=== PATIENT | female | born 1995 | race African-American/Black ===

== ENCOUNTER 2017-06-03 10:14 | Emergency (ER) | payer SELFPAY ==
[2017-06-03 11:20] LABS: ABS Basophils 0 10^3/ul (0-0.2); ABS Eosinophils 0.2 10^3/ul (0-0.6); ABS Lymphocytes 2.1 10^3/ul (1.0-4.8); ABS Monocytes 0.6 10^3/ul (0-0.8); ABS Neutrophils 10.4 10^3/ul (1.5-7.7); ABS Nucleated RBC 0 10^3/ul; Eosinophil % 1.1 % (0-6); Hematocrit 43 % (35-47); Hemoglobin 14.5 g/dl (12.0-16.0); Lymphocyte % 15.7 % (25-47); Mean Corpuscular HGB Conc 34 g/dl (31-36); Mean Corpuscular Hemoglobin 30 pg (27-31); Mean Corpuscular Volume 88 fL (80-97); Mean Platelet Volume 9.1 um3 (7.4-10.4); Nucleated Red Blood Cells % 0; Platelet Count 212 10^3/ul (150-450); Red Blood Count 4.86 10^6/ul (4.0-5.4); Red Cell Distribution Width 15 % (10.5-15); White Blood Count 13.3 10^3/ul (3.5-10.8)
[2017-06-03 11:41] LABS: Urine Appearance Clear; Urine Blood Negative (Negative); Urine Color Yellow; Urine Ketones Negative (Negative); Urine Protein Negative (Negative); Urine Specific Gravity 1.008 (1.010-1.030); Urine Urobilinogen Negative (Negative)
--- NOTE | 2017-06-03 12:29 | ED ---
- HPI Summary HPI Summary: 21 female presents to ED with complaints of some lower suprapubic cramping that' s been ongoing for the past 2-3 days. Denies any vaginal bleeding, vaginal discharge or urinary symptoms. Has been going to the bathroom normally. States she took a test 2 weeks ago and was negative however took one 3 days ago and was positive. Patient states last menstrual cycle was approximately one month ago and is unsure of the date. Denies any concerns for STDs or infection. Has had one and has 1 child in the past without complication. Normal vaginal delivery. Is not on any control. Pain does not radiate. Feels like menstrual cramps per patient. Has not taken any medication. No past medical history no other complaints. No fever no chills no chest pain or shortness of breath. Nothing makes the pain better or worse. - History of Current Complaint Chief Complaint: EDAbdPain Stated Complaint: FALL/ABD PAIN Time Seen by Provider: 06/03/17 10:52 Hx Obtained From: Patient Chief Complaint: Pain Onset/Duration: Started Days Ago Timing: Intermittent - Worse at times Severity: Mild Current Severity: Mild Pain Intensity: 5 Location of Pain: Suprapubic Character: Cramping Aggravating Factors: Nothing Alleviating Factors: Nothing Associated Signs and Symptoms: Negative: Urinary Symptoms, Vaginal Bleeding or Discharge - Assessment Hx Now: Yes - positive home test 3 days ago Hx : 2 - including current Hx Para: 1 SAB: 0 IEA: 0 History of Ectopic : No Hx Pelvic Inflammatory Disease: No Vaginal Bleeding Amount: None Hx Last Menstrual Period: 05/03/17 - "one month ago" Hx Hysterectomy: No - Risk Factors Ectopic Risk Factor: Negative Ovarian Torsion Risk Factor: Negative - Additional Pertinent History Maternal Blood Type and Rh: O Positive - Allergies/Home Medications Allergies/Adverse Reactions: Allergies Allergy/AdvReac Type Severity Reaction Status Date / Time No Known Allergies Allergy Verified 06/03/17 10:23 PMH/Surg Hx/FS Hx/Imm Hx Endocrine/Hematology History: Denies: Hx Diabetes Cardiovascular History: Denies: Hx Hypertension, Hx Pacemaker/ICD Respiratory History: Reports: Hx Asthma - SPORTS INDUCED History: Denies: Hx Renal Disease Sensory History: Denies: Hx Hearing Aid Psychiatric History: Reports: Hx Anxiety, Hx Attention Deficit Hyperactivity Disorder, Hx Depression, Hx Community Mental Health Tx, Hx Substance Abuse Denies: Hx Eating Disorder, Hx Panic Disorder, Hx Post Traumatic Stress Disorder, Hx Inpatient Treatment, Hx Schizophrenia, Hx Bipolar Disorder, Hx Suicide Attempt, Hx of Violent Episodes Against Others - Surgical History Surgery Procedure, Year, and Place: 2002-[facility]SILECTOMY - Immunization History Immunizations Up to Date: Yes Infectious Disease History: No Infectious Disease History: Denies: History Other Infectious Disease, Traveled Outside the [place] in Last 30 Days - Family History Known Family History: Positive: Cardiac Disease - CHF, Hypertension, Respiratory Disease - COPD - Social History Alcohol Use: None Alcohol Amount: A couple beers every day, but nothing last 2 days Substance Use Type: Reports: None Substance Use Comment - Amount & Last Used: hx cocaine, marijuana Smoking Status (MU): Light Every Day Tobacco Smoker Type: Cigarettes Amount Used/How Often: 4-5 per day Length of Time of Smoking/Using Tobacco: 7 years Have You Smoked in the Last Year: Yes Review of Systems Constitutional: Negative Cardiovascular: Negative Respiratory: Negative Positive: Abdominal Pain - suprapubic Positive: see HPI Skin: Negative Neurological: Negative All Other Systems Reviewed And Are Negative: Yes Physical Exam - Physical Exam Triage Information Reviewed: Yes Vital Signs On Initial Exam: Temp 98.5F Blood pressure 129/81 heart rate 74 02 :98 Respirations 16 Vital Signs Reviewed: Yes Appearance: Positive: Well-Appearing, No Pain Distress, Well-Nourished Skin: Positive: Warm, Skin Color Reflects Adequate Perfusion, Dry. Negative: Cold, Cyanosis @, Pale, Erythema @ Head/Face: Positive: Normal Head/Face Inspection Eyes: Positive: Conjunctiva Clear ENT: Positive: Pharynx normal Neck: Positive: Supple Respiratory/Lung Sounds: Positive: Clear to Auscultation, Breath Sounds Present. Negative: Rales, Rhonchi, Wheezes Cardiovascular: Positive: Normal, RRR, Pulses are Symmetrical in both Upper and Lower Extremities. Negative: Murmur, Rub Abdomen Description: Positive: No Organomegaly, Soft, Other: - Tenderness over suprapubic area on palpation. Negative: CVA Tenderness (R), CVA Tenderness (L) , Distended, Guarding Bowel Sounds: Positive: Present Musculoskeletal: Positive: Normal, Strength/ROM Intact Neurological: Positive: Normal, Sensory/Motor Intact, Alert, Oriented to Person Place, Time - Vaginal Assessment Presentation Comment: vertex Diagnostics - Vital Signs Vital Signs Temp Pulse Resp BP Pulse Ox 06/03/17 10:24 98.5 F 74 16 129/81 98 - Laboratory Lab Results: Lab Results 06/03/17 06/03/17 06/03/17 Range/Units 11:10 11:10 11:10 WBC 13.3 H (3.5-10.8) 10^3/ul RBC 4.86 (4.0-5.4) 10^6/ul Hgb 14.5 (12.0-16.0) g/dl Hct 43 (35-47) % MCV 88 (80-97) fL MCH 30 (27-31) pg MCHC 34 (31-36) g/dl RDW 15 (10.5-15) % Plt Count 212 (150-450) 10^3/ul MPV 9.1 (7.4-10.4) um3 Neut % (Auto) 78.3 (38-83) % Lymph % (Auto) 15.7 L (25-47) % Posey % (Auto) 4.5 (0-7) % Eos % (Auto) 1.1 (0-6) % Baso % (Auto) 0.4 (0-2) % Absolute Neuts (auto) 10.4 H (1.5-7.7) 10^3/ul Absolute Lymphs (auto) 2.1 (1.0-4.8) 10^3/ul Absolute Monos (auto) 0.6 (0-0.8) 10^3/ul Absolute Eos (auto) 0.2 (0-0.6) 10^3/ul Absolute Basos (auto) 0 (0-0.2) 10^3/ul Absolute Nucleated RBC 0 10^3/ul Nucleated RBC % 0 Sodium 137 L (139-145) mmol/L Potassium 4.0 (3.5-5.0) mmol/L Chloride 109 (101-111) mmol/L Carbon Dioxide 22 (22-32) mmol/L Anion Gap 6 (2-11) mmol/L BUN 10 (6-24) mg/dL Creatinine 0.84 (0.51-0.95) mg/dL Est GFR ( Amer) 108.1 (>60) Est GFR (Non-Af Amer) 84.0 (>60) BUN/Creatinine Ratio 11.9 (8-20) Glucose 98 (70-100) mg/dL Lactic Acid 0.7 (0.5-2.0) mmol/L Calcium 9.8 (8.6-10.3) mg/dL Total Bilirubin 0.30 (0.2-1.0) mg/dL AST 16 (13-39) U/L ALT 10 (7-52) U/L Alkaline Phosphatase 59 (34-104) U/L C-Reactive Protein 1.56 (< 5.00) mg/L Total Protein 7.5 (6.4-8.9) g/dL Albumin 4.4 (3.2-5.2) g/dL Globulin 3.1 (2-4) g/dL Albumin/Globulin Ratio 1.4 (1-3) Lipase 39 (11.0-82.0) U/L Beta HCG, Quant 2597.00 mIU/mL Urine Color Urine Appearance Urine pH (5-9) Ur Specific Colton (1.010-1.030) Urine Protein (Negative) Urine Ketones (Negative) Urine Blood (Negative) Urine Nitrate (Negative) Urine Bilirubin (Negative) Urine Urobilinogen (Negative) Ur Leukocyte Esterase (Negative) Urine Glucose (Negative) 06/03/17 Range/Units 11:22 WBC (3.5-10.8) 10^3/ul RBC (4.0-5.4) 10^6/ul Hgb (12.0-16.0) g/dl Hct (35-47) % MCV (80-97) fL MCH (27-31) pg MCHC (31-36) g/dl RDW (10.5-15) % Plt Count (150-450) 10^3/ul MPV (7.4-10.4) um3 Neut % (Auto) (38-83) % Lymph % (Auto) (25-47) % Posey % (Auto) (0-7) % Eos % (Auto) (0-6) % Baso % (Auto) (0-2) % Absolute Neuts (auto) (1.5-7.7) 10^3/ul Absolute Lymphs (auto) (1.0-4.8) 10^3/ul Absolute Monos (auto) (0-0.8) 10^3/ul Absolute Eos (auto) (0-0.6) 10^3/ul Absolute Basos (auto) (0-0.2) 10^3/ul Absolute Nucleated RBC 10^3/ul Nucleated RBC % Sodium (139-145) mmol/L Potassium (3.5-5.0) mmol/L Chloride (101-111) mmol/L Carbon Dioxide (22-32) mmol/L Anion Gap (2-11) mmol/L BUN (6-24) mg/dL Creatinine (0.51-0.95) mg/dL Est GFR ( Amer) (>60) Est GFR (Non-Af Amer) (>60) BUN/Creatinine Ratio (8-20) Glucose (70-100) mg/dL Lactic Acid (0.5-2.0) mmol/L Calcium (8.6-10.3) mg/dL Total Bilirubin (0.2-1.0) mg/dL AST (13-39) U/L ALT (7-52) U/L Alkaline Phosphatase (34-104) U/L C-Reactive Protein (< 5.00) mg/L Total Protein (6.4-8.9) g/dL Albumin (3.2-5.2) g/dL Globulin (2-4) g/dL Albumin/Globulin Ratio (1-3) Lipase (11.0-82.0) U/L Beta HCG, Quant mIU/mL Urine Color Yellow Urine Appearance Clear Urine pH 6.0 (5-9) Ur Specific Colton 1.008 L (1.010-1.030) Urine Protein Negative (Negative) Urine Ketones Negative (Negative) Urine Blood Negative (Negative) Urine Nitrate Negative (Negative) Urine Bilirubin Negative (Negative) Urine Urobilinogen Negative (Negative) Ur Leukocyte Esterase Negative (Negative) Urine Glucose Negative (Negative) Result Diagrams: 06/03/17 11:10 06/03/17 11:10 Lab Statement: Any lab studies that have been ordered have been reviewed, and results considered in the medical decision making process. - Ultrasound No standard instances Ultrasound Interpretation: Positive (See Comments) - 1. Potential although not definitive intrauterine gestational sac measuring up to 0.45 cm corresponding to 5 weeks 0 days gestation however no pole or yolk sac is visualized to confirm that this represents a gestational sac. 2. Negative for suspicious extraovarian adnexal region lesions. 3. As an ectopic cannot be excluded in setting of positive test without definitive IUP close clinical, beta-HCG, and sonographic follow-up is suggested as deemed appropriate. Ultrasound Interpretation Completed By: Radiologist Re-Evaluation - Re-Evaluation First Eval Re-Evaluation Time: 13:30 Change: Improved - Considered on ultrasound and lab results patient agrees and understands plan and is feeling better and wants to go home. No other complaints or concerns Course/Dx - Course Course Of Treatment: Patient denies any Tylenol any G period cramps subsided some. Ultrasound obtained and showed a potential early IUP without complication. HCG obtained 2597 appears to be increasing normally. Rest of labs are unremarkable. Urinalysis unremarkable. Normal physical examination vital signs otherwise. Appears to be experiencing some cramping due to . Educated potential miscarriage is possible however there is no vaginal bleeding or discharge to state otherwise. Patient is aware worsening signs and symptoms watch out for. Call make an appointment with [facility] have repeat hCG and ultrasound obtained. Return to ED if any new symptoms occur. Patient agrees and understands plan. No other complaints or concerns. Educated on no drug or alcohol use and Tylenol as anything safe for pain. sent over to pharmacy. - Differential Diagnosis/HQI/PQRI: Threatened , Early , Other: - Cramping - Diagnoses Provider Diagnoses: Early stage of Discharge - Sign-Out/Discharge Documenting (check all that apply): Discharge - Discharge Plan Condition: Good Disposition: HOME Prescriptions: Pnv No.95/Ferrous Fum/Folic AC [ Tablet] 1 each PO DAILY #30 tablet Patient Education Materials: (ED) Referrals: Mazin Ray MD [Primary Care Provider] - Felipe Ramos MD [Medical Doctor] - Additional Instructions: Please call to make an appointment with [facility] and have repeat ultrasound and hCG performed. Any new or worsening symptoms please seek medical attention promptly, as we discussed. Take prenatals daily. Tylenol as the only safe pain reliever to take as needed. Recommend warm compresses over her abdomen to help with cramping.. - Billing Disposition and Condition Condition: GOOD Disposition: HOME
--- NOTE | 2017-06-03 13:23 | RAD ---
Indication: Pelvic pain post fall 2 days ago. . Unsure of date of LMP. Comparison: No relevant prior exams available on [place] [facility]. Technique: Transvaginal obstetrical ultrasound. Report: 9.4 x 5.0 x 6.0 cm anteverted uterus with 11.7 mm endometrium. 0.45 cm mean diameter cystic structure with suggestion of an early decidual reaction visualized within the endometrial cavity which corresponding with 5 weeks 0 days gestation. No pole or yolk sac visualized. No perigestational hemorrhage evident. 3.8 x 2.0 x 3.0 cm RIGHT ovary with documented vascular flow is remarkable for a low suspicion based on small size 2.0 x 1.5 x 1.8 cm heterogeneous echogenicity structure devoid of intrinsic vascularity which may represent a hemorrhagic cyst or corpus luteum. 3.6 x 1.7 x 2.3 cm LEFT ovary with documented vascular flow is unremarkable. No extra ovarian adnexal region lesions evident. Physiologic trace volume of free pelvic fluid in the RIGHT adnexal region. IMPRESSION: 1. Potential although not definitive intrauterine gestational sac measuring up to 0.45 cm corresponding to 5 weeks 0 days gestation however no pole or yolk sac is visualized to confirm that this represents a gestational sac. 2. Negative for suspicious extraovarian adnexal region lesions. 3. As an ectopic cannot be excluded in setting of positive test without definitive IUP close clinical, beta-HCG, and sonographic follow-up is suggested as deemed appropriate.
[2017-06-03 13:44] VITALS: BP 130/82
== END 2017-06-03 13:43 | disposition home or self-care (01) ==
LOC: ED 10:14
DX: Z33.1 Pregnant state, incidental (principal); J45.909 Unspecified asthma, uncomplicated; F90.9 Attention-deficit hyperactivity disorder, unspecified type; F41.9 Anxiety disorder, unspecified; F32.9 Major depressive disorder, single episode, unspecified; F17.210 Nicotine dependence, cigarettes, uncomplicated
CPT/HCPCS: 36415; 76817; 80053; 81003; 83605; 83690; 84702; 85025; 86140; 99282

== ENCOUNTER 2018-04-02 15:34 | Inpatient (IN) | payer OTHER ==
--- NOTE | 2018-04-02 15:54 | ED ---
Psychiatric Complaint - HPI Summary HPI Summary: This patient is a 22 year old female presenting to the emergency department with a CC of SI. She is accompanied by her sister who dictates the history. The patient was cutting her forearms with a knife and attempted to cut her throat but her sister took the the knife from her. She is unsure of LNMP. Pt has hx of depression and anxiety. She has been sleeping very often recently. There is a history of glioblastoma in the family. - History Of Current Complaint Chief Complaint: EDMentalHealth Time Seen by Provider: 04/02/18 15:44 Hx Obtained From: Patient Hx Last Menstrual Period: End Dec 2014 Onset/Duration: Still Present Timing: Constant Severity Initially: Moderate Severity Currently: Moderate Character: Depressed Related History: Positive For: Prior Psychiatric Issues Has Suicidal: Reports: Thoughts, With A Plan, Demonstrates Gesture - Allergies/Home Medications Allergies/Adverse Reactions: Allergies Allergy/AdvReac Type Severity Reaction Status Date / Time No Known Allergies Allergy Verified 06/03/17 10:23 Home Medications: Home Medications NK [No Home Medications Reported] 04/02/18 [History Confirmed 04/02/18] PMH/Surg Hx/FS Hx/Imm Hx Endocrine/Hematology History: Denies: Hx Diabetes Cardiovascular History: Denies: Hx Hypertension, Hx Pacemaker/ICD Respiratory History: Reports: Hx Asthma - SPORTS INDUCED GI History: Denies: Hx Gastroesophageal Reflux Disease History: Denies: Hx Renal Disease Sensory History: Denies: Hx Hearing Aid Psychiatric History: Reports: Hx Anxiety, Hx Attention Deficit Hyperactivity Disorder, Hx Depression, Hx Community Mental Health Tx, Hx Substance Abuse Denies: Hx Eating Disorder, Hx Panic Disorder, Hx Post Traumatic Stress Disorder, Hx Inpatient Treatment, Hx Schizophrenia, Hx Bipolar Disorder, Hx Suicide Attempt, Hx of Violent Episodes Against Others - Surgical History Surgery Procedure, Year, and Place: 2002-[facility]SILECTOMY Infectious Disease History: No Infectious Disease History: Denies: History Other Infectious Disease, Traveled Outside the [place] in Last 30 Days - Family History Known Family History: Positive: Cardiac Disease - CHF, Hypertension, Respiratory Disease - COPD - Social History Alcohol Use: None Alcohol Amount: A couple beers every day, but nothing last 2 days Substance Use Type: Reports: None Substance Use Comment - Amount & Last Used: hx cocaine, marijuana Smoking Status (MU): Light Every Day Tobacco Smoker Type: Cigarettes Amount Used/How Often: 4-5 per day Length of Time of Smoking/Using Tobacco: 7 years Have You Smoked in the Last Year: Yes Review of Systems Positive: Fatigue Positive: Other - abrasions Positive: Depressed - w/ SI All Other Systems Reviewed And Are Negative: Yes Physical Exam - Summary Physical Exam Summary: VITAL SIGNS: Reviewed. GENERAL: Patient is a well-developed and nourished female who is lying comfortable in the stretcher. Patient is not in any acute respiratory distress. HEAD AND FACE: No signs of trauma. No ecchymosis, hematomas or skull depressions. No sinus tenderness. EYES: PERRLA, EOMI x 2, No injected conjunctiva, no nystagmus. EARS: Hearing grossly intact. Ear canals and tympanic membranes are within normal limits. MOUTH: Oropharynx within normal limits. NECK: Supple, trachea is midline, no adenopathy, no JVD, no carotid bruit, no c- spine tenderness, neck with full ROM. CHEST: Symmetric, no tenderness at palpation LUNGS: Clear to auscultation bilaterally. No wheezing or crackles. CVS: Regular rate and rhythm, S1 and S2 present, no murmurs or gallops appreciated. ABDOMEN: Soft, non-tender. No signs of distention. No rebound no guarding, and no masses palpated. Bowel sounds are normal. EXTREMITIES: FROM in all major joints, no edema, no cyanosis or clubbing. NEURO: Alert and oriented x 3. No acute neurological deficits. Speech is normal and follows commands. SKIN:There are 4 superficial abrasion on the left forearm Triage Information Reviewed: Yes Vital Signs On Initial Exam: Initial Vitals Temp Pulse Resp BP Pulse Ox 98.4 F 96 20 136/84 99 04/02/18 15:40 04/02/18 15:40 04/02/18 15:40 04/02/18 15:40 04/02/18 15:40 Vital Signs Reviewed: Yes - Faustino Coma Scale Best Eye Response: 4 - Spontaneous Best Motor Response: 5 - Purposeful Movement Best Verbal Response: 5 - Oriented Coma Scale Total: 14 Diagnostics - Vital Signs Vital Signs Temp Pulse Resp BP Pulse Ox 04/02/18 15:40 98.4 F 96 20 136/84 99 - Laboratory Result Diagrams: 04/02/18 15:22 04/02/18 15:22 Lab Statement: Any lab studies that have been ordered have been reviewed, and results considered in the medical decision making process. - CT CT head CT Interpretation Completed By: Radiologist Summary of CT Findings: No intracranial mass or hemorrhage is noted. Dr Urena has reviewed this report. Re-Evaluation - Re-Evaluation First Eval Re-Evaluation Time: 19:07 Comment: After a MHE by Dr Avalos the patient will be a voluntary admission for major depressive disorder. Course/Dx - Course Assessment/Plan: Blood work w/o a significant abnormality. She is medically cleared. She is awaiting for a MHE. Patient is hemodynamically stable and A+O x 3. Patient was assessed by Dr. Nita chisholm from the psychiatry services and he he recommends for the patient to be admitted to his service for further workup and management. - Differential Dx/Clinical Impression Differential Diagnosis/HQI/PQRI: Positive: Anxiety, Depression, Suicidal Ideation Provider Diagnosis: Major depressive disorder Discharge - Sign-Out/Discharge Documenting (check all that apply): Patient Departure - admitted Patient Received Moderate/Deep Sedation with Procedure: No - Discharge Plan Condition: Fair Dis[place] [place]illing Disposition and Condition Condition: FAIR Disposition: [place] [facility] [place] Attestation Statements Document Initiated by Elizabethe: Yes Documenting Scribe: Willy Solorio Provider For Whom Scribe is Documenting (Include Credential): Tj Urena MD Scribe Attestation: Willy Ortega , scribed for Tj Urena MD on 04/03/18 at 2055. Scribe Documentation Reviewed: Yes Provider Attestation: The documentation as recorded by the Willy gann accurately reflects the service I personally performed and the decisions made by Tj singletary MD Status of Scribe Document: Viewed
[2018-04-02 16:33] LABS: ABS Basophils 0 10^3/ul (0-0.2); ABS Eosinophils 0.1 10^3/ul (0-0.6); ABS Lymphocytes 1.5 10^3/ul (1.0-4.8); ABS Monocytes 0.5 10^3/ul (0-0.8); ABS Neutrophils 6.7 10^3/ul (1.5-7.7); ABS Nucleated RBC 0 10^3/ul; Eosinophil % 0.7 %; Hematocrit 41 % (35-47); Lymphocyte % 17.2 %; Mean Corpuscular HGB Conc 34 g/dl (31-36); Mean Corpuscular Hemoglobin 30 pg (27-31); Mean Corpuscular Volume 88 fL (80-97); Mean Platelet Volume 8.8 fL (7.4-10.4); Nucleated Red Blood Cells % 0; Platelet Count 242 10^3/ul (150-450); Red Blood Count 4.68 10^6/ul (4.00-5.40); Red Cell Distribution Width 14 % (10.5-15); White Blood Count 8.9 10^3/ul (3.5-10.8)
[2018-04-02 16:34] LABS: Urine Appearance Clear; Urine Bilirubin Negative (Negative); Urine Blood Negative (Negative); Urine Color Yellow; Urine Glucose Negative (Negative); Urine Ketones Negative (Negative); Urine Nitrite Negative (Negative); Urine Protein Negative (Negative); Urine Specific Gravity 1.008 (1.010-1.030); Urine Urobilinogen Negative (Negative)
[2018-04-02 16:53] LABS: ALT 12 U/L (7-52); AST 15 U/L (13-39); Albumin 4.9 g/dL (3.2-5.2); Albumin/Globulin Ratio 1.6 (1-3); Alkaline Phosphatase 53 U/L (34-104); Anion Gap 8 mmol/L (2-11); BUN/Creatinine Ratio 11.3 (8-20); Blood Urea Nitrogen 9 mg/dL (6-24); CO2 Carbon Dioxide 23 mmol/L (22-32); Calcium 9.8 mg/dL (8.6-10.3); Chloride 104 mmol/L (101-111); EGFR African American 106.6 (>60); EGFR Non-African American 88.1 (>60); Globulin 3.1 g/dL (2-4); Glucose 117 mg/dL (70-100); Potassium 3.9 mmol/L (3.5-5.0); Sodium 135 mmol/L (135-145)
[2018-04-02 16:54] LABS: Barbiturates Urine Screen None Detected (None Detect); Benzodiazepine Urine Screen None Detected (None Detect); Urine Cannabinoids Screen None Detected (None Detect)
[2018-04-02 16:57] LABS: HCG Pregnancy < 0.60 mIU/mL
[2018-04-02 17:16] LABS: Acetaminophen < 15 mcg/mL; Alcohol < 10 mg/dL (<10); Salicylate < 2.50 mg/dL (<30)
[2018-04-02 18:07] LABS: TSH (Thyroid Stimulating Horm) 1.26 mcIU/mL (0.34-5.60)
[2018-04-02] MEDS ORDERED: Nicotine Inhaler* 10 MG AMP INH ONE (20:36)
[2018-04-02] MEDS ORDERED: Mouth Piece, Nicotine* 1 EACH CARTRIDGE ONE (20:42)
[2018-04-02] MEDS ORDERED: Acetaminophen TAB* 325 MG PO PRN (22:21)
[2018-04-02] MEDS ORDERED: Nicotine GUM* 2 MG PO PRN (22:21)
[2018-04-02] MEDS ORDERED: Al Hydrox/Mg Hydrox/Simet LIQ* 30 ML UDC PO PRN (22:21)
[2018-04-02] MEDS ORDERED: Nicotine Inhaler* 10 MG AMP INH PRN (22:22)
[2018-04-02] MEDS ORDERED: Mouth Piece, Nicotine* 1 EACH CARTRIDGE INH PRN (22:22)
[2018-04-02] MEDS ORDERED: LORazepam TAB(*) 1 MG PO ONE (22:26)
[2018-04-02] MEDS ORDERED: LORazepam TAB(*) 1 MG ONE (22:33)
[2018-04-03 07:40] LABS: HDL Cholesterol 29.3 mg/dL
[2018-04-03] MEDS: Multivitamins/Minerals TAB PO SCH (09:24)
[2018-04-03] MEDS ORDERED: buPROPion TAB* 100 MG PO ONE (11:34)
[2018-04-03] MEDS: Nicotine PATCH 21 MG/24 HR* PATCH TRANSDERM SCH (13:11)
[2018-04-03] MEDS: cloNIDine TAB* 0.1 MG PO PRN (13:48)
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
[2018-04-03] MEDS: Nicotine Patch Removal NOTE FOLLOW UP SCH (22:56)
[2018-04-04] MEDS: Nicotine PATCH 21 MG/24 HR* PATCH TRANSDERM SCH (09:26)
[2018-04-04] MEDS: BuPROPion XL* 150 MG TAB.XL PO SCH (09:27)
[2018-04-04] MEDS: Multivitamins/Minerals TAB PO SCH (09:27)
[2018-04-04] MEDS: cloNIDine TAB* 0.1 MG PO PRN (12:18)
[2018-04-04] MEDS: Nicotine Patch Removal NOTE FOLLOW UP SCH (21:58)
[2018-04-05] MEDS: Multivitamins/Minerals TAB PO SCH (08:23)
[2018-04-05] MEDS: Nicotine PATCH 21 MG/24 HR* PATCH TRANSDERM SCH (08:23)
[2018-04-05] MEDS: BuPROPion XL* 150 MG TAB.XL PO SCH (08:23)
[2018-04-05] MEDS: cloNIDine TAB* 0.1 MG PO PRN (18:15)
--- NOTE | 2018-04-05 19:29 | PN ---
Subjective - Subjective Date of Service: 04/05/18 Service Type: 91106 Hosp care 15 min low complexity Subjective: Carolann remains depressed and to an extent paranoid. Stays in her room because the scared to go into the milieu. Nervous and tearful during the assessment. Reports of feeling confused and inability to think clearly. Denies thoughts of self harm or hallucinations. Objective - Appearance Appearance: Healthy Appearing, Obese Dysmorphic Features: No Hygiene: Normal Grooming: Well Kept - Behavior Psychomotor Activities: Normal Exhibits Abnormal Movement: No - Attitude and Relatedness Attitude and Relatedness: Cooperative Eye Contact: Poor - Speech Quality: Unpressured Latencies: Long Quantity: Terse - Mood Patient's Decription of Mood: "Terrible" - Affect Observed Affect: Tearful - Thought Process Patient's Thought Process: Coherent, Circumstantial Thought Content: No Passive Wish, No Suicidal Planning, No Homicidal Ideation, No Paranoid Ideation - Sensorium Experiencing Hallucinations: No, Sensorium is Clear Type of Hallucinations: Visual: No, Auditory: No, Command: No - Level of Consciousness Level of Consciousness: Alert Orientation: Yes Intact, Yes Orientated to Time, Yes Orientated to Place, Yes Orientated to Person - Impulse Control Impulse Control: Tenuous - Insight and Judgement Insight and Judgement: Poor - Group Participation Particating in Group Activities: No - Medication Management Medication Management Adherence: Yes Assessment - Assessment Merits Inpatient Hospitalization: For Immediate Safety, For Stabilization, Pending Safe DC Plan Clinical Impression: Still symptomatic with labile mood. Plan - Plan Treatment Plan: Name: CAROLANN ROMERO Birthdate: 1995 [id number] Continued Medication Management: Continue Outpt Medication Medications: Current Medications Acetaminophen (Tylenol Tab*) 650 mg PO Q4H PRN PRN Reason: PAIN; OR TEMP >101 Last Admin: 04/03/18 13:13 Dose: 650 mg Al Hydrox/Mg Hydrox/Simethicone (Maalox Plus*) 30 ml PO Q4H PRN PRN Reason: INDIGESTION Bupropion HCl (Wellbutrin Xl *) 150 mg PO DAILY LUANNE Last Admin: 04/05/18 08:23 Dose: 150 mg Clonidine HCl (Catapres Tab*) 0.1 mg PO BID PRN PRN Reason: AGITATION/ANXIETY Last Admin: 04/05/18 18:15 Dose: 0.1 mg Device (Nicotine Mouth Piece*) 1 each INH ONCE PRN PRN Reason: CRAVING Last Admin: 04/05/18 12:39 Dose: 1 each Multivitamins/Minerals (Theragran/Minerals Tab*) 1 tab PO DAILY [facility] Last Admin: 04/05/18 08:23 Dose: 1 tab Nicotine (Nicotine Inhaler*) 10 mg INH Q2H PRN PRN Reason: CRAVING Last Admin: 04/05/18 12:39 Dose: 10 mg Nicotine (Nicotine Patch 21 Mg/24 Hr*) 1 patch TRANSDERM DAILY [facility] Last Admin: 04/05/18 08:23 Dose: Not Given Nicotine Polacrilex (Nicotine Gum*) 2 mg PO Q2H PRN PRN Reason: CRAVING Pharmacy Profile Note (Nicotine Patch Removal Note*) 1 note FOLLOW UP 2100 [facility] Last Admin: 04/04/18 21:58 Dose: 1 note - Discharge Plan Discharge Plan: Outpatient Follow Up Outpatient Program: [facility]
[2018-04-05] MEDS: Nicotine Patch Removal NOTE FOLLOW UP SCH (21:17)
[2018-04-06 08:36] VITALS: BP 134/90
[2018-04-06] MEDS: BuPROPion XL* 150 MG TAB.XL PO SCH (08:55)
[2018-04-06] MEDS: Nicotine PATCH 21 MG/24 HR* PATCH TRANSDERM SCH (08:55)
[2018-04-06] MEDS: Multivitamins/Minerals TAB PO SCH (08:55)
--- NOTE | 2018-04-06 16:09 | DS ---
CC: [facility]; Ruddy Kiran NP * DATE OF ADMISSION: 04/02/2018. DATE OF DISCHARGE: 04/06/2018. SUPERVISING PSYCHIATRIST: Dr. Gautam To * (dictated by Maisha Marquis NP) . DISCHARGE DIAGNOSES: Major depressive disorder; ADHD, inattentive type. CONDITION AT TIME OF DISCHARGE: Improved. The patient denies suicidal ideation. She denies thoughts of self-harm. She denies passive wish. She reports improvement in mood and sleep. She also states desire to be discharged in order to return home with family. She states that being in the hospital is worsening anxiety due to acuity on the Mental Health Unit. The patient has been safe on all checks and behavioral control. She has been minimally participatory in programming. She has been medication compliant, reports mild improvement in mood and cognition. She reports desire to continue with outpatient treatment. I received a voicemail from her sister, Pineda, advocating for her release. MENTAL STATUS EXAM: Inga is a 22-year-old, female who appears stated age. She is casually dressed in her own clothing and well-groomed, ADL' s are completed. She is cooperative and answers questions fully. She is alert and oriented times three and eye contact is good. Speech is soft and articulate. Mood is euthymic with full range of affect. No abnormal psychomotor activity noted. Thought process is logical, goal-directed, and circumstantial in regards to being discharged from the hospital. Thought content is negative for suicidal ideation or passive wish. She denies auditory or visual hallucinations. There are no perceptual disturbances observed. Insight and judgment are good in that she was admitted voluntarily and has been compliant with medications. Fund of knowledge is adequate. INSTRUCTIONS GIVEN TO PATIENT: A. Medications: Bupropion XL 150 mg daily Clonidine 0.1 mg p.o. b.i.d. prn agitation or anxiety. B. Diet: Regular. C. Activity: Ambulation as tolerated. Tobacco cessation was declined by the patient. There are no pending labs or diagnostic studies. D. Follow-up care: She was referred to [facility] and has an intake appointment tomorrow at 10:00 a.m. Her primary care provider is Ruddy Kiran NP and has an appointment with him on April 15 at 10:30 a.m. E. Substance use follow-up: Nonapplicable. HOSPITAL COURSE - PART A: Reason for admission: The patient presented to the emergency department with complaints of suicidal ideation and a recent attempt via cutting her wrist. She reported increased and severe depression over the last three months. Inga is a , 22-year-old female, unemployed and domiciled who is currently living with her mother, lisa and brother. She and her boyfriend, Spencer, returned to the area approximately one month ago after residing in the [facility]. The patient endorses severely depressed mood, frequent crying, and decreased concentration as problematic. She endorses decreased energy and motivation, as well as anhedonia. She states she feels sluggish and uncoordinated. She reports poor sleep with frequent waking, decreased appetite, and a small amount of weight loss. HOSPITAL COURSE - PART B: Psychiatric treatment rendered: The patient was admitted to the Adult Behavioral Services Unit on voluntary status. Code status is full. She was placed on 15 minute checks for her safety and decreased to every 30 minutes. She is encouraged to participate in supportive milieu, individual sessions with staff, and psychoeducational groups. She was minimally interactive and cited that she was shy. She gave informed consent for a trial of Bupropion and denied side effects. She reported concern about seeing dots in her eyes. Eye exam performed by short story writer, there were no abnormalities seen. The patient denied pain or discharge. PERRLA, EOMI bilaterally. I spoke with Hospitalist Service who verified no further indication at this time. The patient appeared relieved by this information. As stated above, the patient reported readiness to discharge and reported feeling homesick for her family. She agreed to referral for outpatient mental health treatment. His short story writer, the patient, and her family members coordinated via phone for discharge. MAISHA MARQUIS, DAGO [id number]/[facility] #: [id number] BENJIE
== END 2018-04-06 11:45 | disposition home or self-care (01) | DRG 881 ==
LOC: ED 15:34 → BSU 22:32
PROVIDERS: ADMIT Psychiatry & Neurology Psychiatry; ATTEND Psychiatry & Neurology Psychiatry
DX: F32.9 Major depressive disorder, single episode, unspecified (principal); R45.851 Suicidal ideations; F90.0 Attention-deficit hyperactivity disorder, predominantly inattentive type; E53.9 Vitamin B deficiency, unspecified; Z81.8 Family history of other mental and behavioral disorders
CPT/HCPCS: 36415; 70450; 80053; 80061; 80307; 80320; 80329; 81003; 83036; 84443; 84702; 85025; 85660; 99222; 99231; 99238; 99284; A9270-GY; G0480